=== PATIENT | male | born 1955 | race Caucasian/White ===

== ENCOUNTER 2020-07-20 08:19 | Emergency (ER) | payer MEDICARE, OTHER ==
--- NOTE | 2020-07-20 09:07 | EDM.PDOC ---
ED HPI GENERAL MEDICAL PROBLEM - General Chief Complaint: Neuro Symptoms/Deficits Stated Complaint: DIZZY/LIGHTHEADED Time Seen by Provider: 07/20/20 08:54 Source of Information: Reports: Patient, RN Notes Reviewed History Limitations: Reports: No Limitations - History of Present Illness INITIAL COMMENTS - FREE TEXT/NARRATIVE: 65-year-old gentleman presents emergency department a complaint of chest pain that happened yesterday and then he has had dizziness for about 24 hours. He describes the dizziness as a lightheaded feeling he has no difficulty walking no difficulty with vision he just feels like he is in a mental fog. His chest pain happened yesterday lasted for few minutes he did not feel nauseated no shortness of breath no diaphoresis. He did have a stress test about 6 years ago which he states was negative while he was in [place]. At this time he has no chest pain he still feels lightheaded - Related Data Allergies Allergy/AdvReac Type Severity Reaction Status Date / Time No Known Allergies Allergy Verified 07/20/20 08:40 Home Meds: Home Meds Mesalamine [Lialda] 1 tab PO DAILY 07/20/20 [History] lisinopriL [Lisinopril] 1 tab PO DAILY 07/20/20 [History] Past Medical History Cardiovascular History: Reports: Hypertension Gastrointestinal History: Reports: Inflammatory Bowel Disease Genitourinary History: Reports: Renal Calculus Social & Family History - Tobacco Use Tobacco Use Status *Q: Never Tobacco User ED ROS GENERAL - Review of Systems Review Of Systems: See Below Constitutional: Reports: No Symptoms HEENT: Reports: No Symptoms Respiratory: Reports: No Symptoms Cardiovascular: Reports: Chest Pain, Lightheadedness GI/Abdominal: Reports: No Symptoms Musculoskeletal: Reports: No Symptoms Neurological: Denies: Dizziness ED EXAM, GENERAL - Physical Exam Exam: See Below Exam Limited By: No Limitations General Appearance: Alert, WD/WN, No Apparent Distress Eye Exam: Bilateral Eye: EOMI, Normal Inspection, PERRL Ears: Normal External Exam, Normal Canal, Hearing Grossly Normal, Normal TMs Head: Atraumatic, Normocephalic Neck: Normal Inspection, Supple, Non-Tender, Full Range of Motion Respiratory/Chest: No Respiratory Distress, Lungs Clear, Normal Breath Sounds, No Accessory Muscle Use, Chest Non-Tender Cardiovascular: Regular Rate, Rhythm, No Murmur GI/Abdominal: Soft, Non-Tender Neurological: Alert, Oriented, CN II-XII Intact, Normal Cognition, Normal Gait, No Motor/Sensory Deficits #1 Interpretation EKG Date: 07/20/20 Rhythm: NSR Rate (Beats/Min): 59 [place]: LAD-Left [place] Deviation P-Wave: Present QRS: LBBB ST-T: Normal Comparison: NA - No Prior EKG Course - Vital Signs Last Recorded V/S: Last Vital Signs Temp 97.0 F 07/20/20 08:55 Pulse 63 07/20/20 08:55 Resp 14 07/20/20 08:55 BP 144/76 H 07/20/20 08:55 Pulse Ox 98 07/20/20 08:55 - Orders/Labs/Meds Orders: Active Orders 24 hr Category Date Time Status Cardiac Monitoring [RC] .As Directed Care 07/20/20 09:04 Active EKG Documentation Completion [RC] ASDIRECTED Care 07/20/20 09:04 Active Meclizine [Antivert] Med 07/20/20 10:32 Once 25 mg PO ONETIME ONE EKG 12 Lead [EK] Stat Ther 07/20/20 09:04 Ordered Labs: Laboratory Tests 07/20/20 07/20/20 07/20/20 Range/Units 09:03 09:15 09:15 WBC 7.5 (4.5-11.0) K/uL RBC 5.34 (4.30-5.90) M/uL Hgb 15.3 H (12.0-15.0) g/dL Hct 46.2 (40.0-54.0) % MCV 87 (80-98) fL MCH 29 (27-31) pg MCHC 33 (32-36) % Plt Count 209 (150-400) K/uL Neut % (Auto) 79 H (36-66) % Lymph % (Auto) 13 L (24-44) % [place] % (Auto) 7 H (2-6) % Eos % (Auto) 1 L (2-4) % Baso % (Auto) 0 (0-1) % D-Dimer, Quantitative 290.27 (0.0-500.0) ng/mL Sodium (140-148) mmol/L Potassium (3.6-5.2) mmol/L Chloride (100-108) mmol/L Carbon Dioxide (21-32) mmol/L Anion Gap (5.0-14.0) mmol/L BUN (7-18) mg/dL Creatinine (0.8-1.3) mg/dL Est Cr Clr Drug Dosing mL/min Estimated GFR (MDRD) (>60) Glucose (74-106) mg/dL Hemoglobin A1c (4.5-6.2) % Lactic Acid 0.9 (0.4-2.0) mmol/L Calcium (8.5-10.1) mg/dL Total Bilirubin (0.2-1.0) mg/dL AST (15-37) U/L ALT (12-78) U/L Alkaline Phosphatase (46-116) U/L Troponin I (0.000-0.056) ng/mL Total Protein (6.4-8.2) g/dL Albumin (3.4-5.0) g/dL Globulin (2.3-3.5) g/dL Albumin/Globulin Ratio (1.2-2.2) 07/20/20 07/20/20 Range/Units 09:15 09:15 WBC (4.5-11.0) K/uL RBC (4.30-5.90) M/uL Hgb (12.0-15.0) g/dL Hct (40.0-54.0) % MCV (80-98) fL MCH (27-31) pg MCHC (32-36) % Plt Count (150-400) K/uL Neut % (Auto) (36-66) % Lymph % (Auto) (24-44) % [place] % (Auto) (2-6) % Eos % (Auto) (2-4) % Baso % (Auto) (0-1) % D-Dimer, Quantitative (0.0-500.0) ng/mL Sodium 144 (140-148) mmol/L Potassium 4.1 (3.6-5.2) mmol/L Chloride 107 (100-108) mmol/L Carbon Dioxide 27 (21-32) mmol/L Anion Gap 9.9 (5.0-14.0) mmol/L BUN 20 H (7-18) mg/dL Creatinine 0.8 (0.8-1.3) mg/dL Est Cr Clr Drug Dosing 90.83 mL/min Estimated GFR (MDRD) > 60 (>60) Glucose 102 (74-106) mg/dL Hemoglobin A1c 5.6 (4.5-6.2) % Lactic Acid (0.4-2.0) mmol/L Calcium 9.1 (8.5-10.1) mg/dL Total Bilirubin 0.5 (0.2-1.0) mg/dL AST 14 L (15-37) U/L ALT 22 (12-78) U/L Alkaline Phosphatase 89 (46-116) U/L Troponin I < 0.017 (0.000-0.056) ng/mL Total Protein 6.8 (6.4-8.2) g/dL Albumin 3.6 (3.4-5.0) g/dL Globulin 3.2 (2.3-3.5) g/dL Albumin/Globulin Ratio 1.1 L (1.2-2.2) Departure - Departure Time of Disposition: 10:33 Disposition: Home, Self-Care 01 Condition: Fair Clinical Impression: Lightheaded Instructions: Dizziness, [id number] Referrals: PCP,None [Primary Care Provider] - Forms: ED Department Discharge Additional Instructions: Try the meclizine if this works you can use it as needed, please followup with your primary care provider in 3-5 days if not better, please call return to the emergency department with worsening of symptoms. Sepsis Event Note (ED) - Evaluation Sepsis Screening Result: No Definite Risk - Focused Exam Vital Signs: Vital Signs Temp Pulse Resp BP Pulse Ox 07/20/20 08:55 97.0 F 63 14 144/76 H 98 - My Orders Last 24 Hours: My Active Orders 07/20/20 09:04 Cardiac Monitoring [RC] .As Directed EKG Documentation Completion [RC] ASDIRECTED EKG 12 Lead [EK] Stat 07/20/20 10:32 Meclizine [Antivert] 25 mg PO ONETIME ONE - Assessment/Plan Last 24 Hours: My Active Orders 07/20/20 09:04 Cardiac Monitoring [RC] .As Directed EKG Documentation Completion [RC] ASDIRECTED EKG 12 Lead [EK] Stat 07/20/20 10:32 Meclizine [Antivert] 25 mg PO ONETIME ONE Plan: Assessment Acuity = acute Site and laterality = lightheadedness Etiology = unknown Manifestations = none Location of injury = Home Lab values = CBC, CMP, D-dimer, troponin all within normal limits EKG demonstrates sinus rhythm no ST elevations or depressions, chest x-ray shows no acute process Plan I did review lab work CT scan results with him he is willing to try meclizine and then follow-up with primary care if not better This note was dictated using [employer] voice recognition software please call with any questions on syntax or grammar.
[2020-07-20 09:39] LABS: HEMOGLOBIN A1C 5.6 % (4.5-6.2)
--- NOTE | 2020-07-20 09:41 | CR ---
CHEST: 2 view CLINICAL HISTORY:Chest pain COMPARISON:None FINDINGS: The heart size, pulmonary vascularity and hilar structures are normal. No infiltrate effusion or pneumothorax is seen. There are atherosclerotic changes in the aorta. IMPRESSION: No acute cardiopulmonary process.
[2020-07-20] MEDS ORDERED: Meclizine 25 MG Tab PO ONE (10:32)
== END 2020-07-20 10:46 | disposition home or self-care (01) ==
LOC: JP.ED 08:19
DX: R42 Dizziness and giddiness (principal); I10 Essential (primary) hypertension; Z79.899 Other long term (current) drug therapy
CPT/HCPCS: 36415; 71046; 71046-26; 80053; 83036; 83605; 84484; 85025; 85379; 93005; 99283; 99285-25; A9270-GY

== ENCOUNTER 2021-01-25 20:22 | Emergency (ER) | payer MEDICARE, OTHER ==
--- NOTE | 2021-01-25 22:16 | EDM.PDOC ---
ED HPI GENERAL MEDICAL PROBLEM - General Chief Complaint: General Stated Complaint: FATIGUE, ACHES, RUNNY NOSE Time Seen by Provider: 01/25/21 21:00 Source of Information: Reports: Patient History Limitations: Reports: No Limitations - History of Present Illness INITIAL COMMENTS - FREE TEXT/NARRATIVE: pt had a contact with his boss who just became covid positive. He started to have body aches and slight cough last nite. He has not been short of breath. Onset: Today Duration: Hour(s): Location: Reports: Generalized Associated Symptoms: Reports: Diaphoresis, Headaches, Weakness Generalized Pain Score (Numeric/FACES): 4 - Related Data Allergies Allergy/AdvReac Type Severity Reaction Status Date / Time No Known Allergies Allergy Verified 07/20/20 08:40 Home Meds: Home Meds Mesalamine [Lialda] 1 tab PO DAILY 07/20/20 [History] lisinopriL [Lisinopril] 1 tab PO DAILY 07/20/20 [History] Past Medical History Cardiovascular History: Reports: Hypertension Gastrointestinal History: Reports: Inflammatory Bowel Disease Other Gastrointestinal History: colitis Genitourinary History: Reports: Renal Calculus Social & Family History - Family History Family Medical History: No Pertinent Family History - Tobacco Use Tobacco Use Status *Q: Never Tobacco User Second Hand Smoke Exposure: No - Caffeine Use Caffeine Use: Reports: None - Recreational Drug Use Recreational Drug Use: No ED ROS GENERAL - Review of Systems Review Of Systems: See Below Constitutional: Reports: Malaise, Weakness HEENT: Reports: No Symptoms Respiratory: Reports: Cough Cardiovascular: Reports: No Symptoms Endocrine: Reports: No Symptoms GI/Abdominal: Reports: No Symptoms : Reports: No Symptoms Musculoskeletal: Reports: No Symptoms Skin: Reports: No Symptoms ED EXAM, GENERAL - Physical Exam Exam: See Below Free Text/Narrative:: pt arrived with a history of a covid contact and having body aches. He has been eating and drinkling normally. He was found to be covid positive. Exam Limited By: No Limitations General Appearance: Alert, No Apparent Distress, Anxious Ears: Normal TMs Nose: Normal Inspection Throat/Mouth: Normal Inspection Head: Atraumatic Neck: Normal Inspection Respiratory/Chest: No Respiratory Distress Cardiovascular: Regular Rate, Rhythm GI/Abdominal: Soft, Non-Tender (Male) Exam: Deferred Rectal (Males) Exam: Deferred Back Exam: Normal Inspection Extremities: Normal Inspection Neurological: Alert, Oriented, Normal Cognition Psychiatric: Anxious Course - Vital Signs Last Recorded V/S: Last Vital Signs Temp 36.7 C 01/25/21 21:00 Pulse 82 01/25/21 21:00 Resp 16 01/25/21 21:00 BP 144/90 H 01/25/21 21:00 Pulse Ox 97 01/25/21 21:00 - Orders/Labs/Meds Labs: Laboratory Tests 01/25/21 01/25/21 01/25/21 Range/Units 21:10 21:26 21:26 WBC 6.5 (4.5-11.0) K/uL RBC 5.11 (4.30-5.90) M/uL Hgb 14.9 (12.0-15.0) g/dL Hct 44.2 (40.0-54.0) % MCV 87 (80-98) fL MCH 29 (27-31) pg MCHC 34 (32-36) % Plt Count 156 (150-400) K/uL Neut % (Auto) 72.2 H (36-66) % Lymph % (Auto) 9.1 L (24-44) % [place] % (Auto) 18.2 H (2-6) % Eos % (Auto) 0.2 L (2-4) % Baso % (Auto) 0.3 (0-1) % Sodium 136 L (140-148) mmol/L Potassium 4.3 (3.6-5.2) mmol/L Chloride 101 (100-108) mmol/L Carbon Dioxide 27 (21-32) mmol/L Anion Gap 12.3 (5.0-14.0) mmol/L BUN 20 H (7-18) mg/dL Creatinine 0.9 (0.8-1.3) mg/dL Est Cr Clr Drug Dosing 75.48 mL/min Estimated GFR (MDRD) > 60 (>60) Glucose 95 (74-106) mg/dL Calcium 8.6 (8.5-10.1) mg/dL Total Bilirubin 0.4 (0.2-1.0) mg/dL AST 19 (15-37) U/L ALT 29 (12-78) U/L Alkaline Phosphatase 78 (46-116) U/L Total Protein 6.8 (6.4-8.2) g/dL Albumin 3.6 (3.4-5.0) g/dL Globulin 3.2 (2.3-3.5) g/dL Albumin/Globulin Ratio 1.1 L (1.2-2.2) SARS CoV-2 RNA Rapid MILADYS Positive H - Re-Assessments/Exams Free Text/Narrative Re-Assessment/Exam: 01/25/21 22:24 pt was found to be covid positive. He has normal looking labs otherwise. Because of his age he would be a canidate for monoclonal therapy. We have no further doses. [facility] also has been turning pts away. Pt will be given his test result and if he can find any monoclonl therapy he would be a canidate for it. 01/25/21 22:25 01/29/21 07:43 Departure - Departure Time of Disposition: 22:14 Disposition: Home, Self-Care 01 Condition: Fair Clinical Impression: COVID-19 - Discharge Information Instructions: COVID-19 Referrals: PCP,None [Primary Care Provider] - Forms: ED Department Discharge Sepsis Event Note (ED) - Evaluation Sepsis Screening Result: No Definite Risk
== END 2021-01-25 22:50 | disposition home or self-care (01) ==
LOC: JP.ED 20:22
DX: U07.1 COVID-19 (principal); I10 Essential (primary) hypertension; Z79.899 Other long term (current) drug therapy
CPT/HCPCS: 36415; 80053; 85025; 99283; U0002